=== PATIENT | male | born 1985 | race Caucasian/White ===

== ENCOUNTER 2020-07-21 08:47 | Observation (INO) | payer MEDICAID ==
[~2020-07-21] VITALS: Ht 188 cm; Wt 104.8 kg
--- NOTE | 2020-07-21 09:10 | NUR ---
WOKE TODAY WITH CP "IT FEELS LIKE ITS BRUISED BY MY HEART. I'M HAVING HOT AND COLD SWEATS." ecg obtained in triage vss NO muscle aches/cough
[2020-07-21] MEDS ORDERED: KETOROLAC 30 MG/1 ML ONE (09:17)
[2020-07-21] MEDS ORDERED: CYCLOBENZAPRINE 10 MG TABLET ONE (09:18)
--- NOTE | 2020-07-21 09:27 | NUR ---
Medicated per emar
[2020-07-21] MEDS ORDERED: CYCLOBENZAPRINE 10 MG TABLET PO ONE (09:30)
[2020-07-21] MEDS ORDERED: KETOROLAC 30 MG/1 ML IM ONE (09:30)
--- NOTE | 2020-07-21 09:48 | NUR ---
lab obtained-sent
[2020-07-21 09:57] LABS: BASOPHILS % (AUTO) 1 % (0-1); EOSINOPHILS % (AUTO) 2 % (1-7); LYMPHOCYTES % (AUTO) 38 % (22-44); MEAN CORPUSCULAR HGB CONC 34.8 g/dL (33.2-36.2); MEAN PLATELET VOLUME 10.4 fL (7.4-10.4); MONOCYTES % (AUTO) 7 % (2-9); NEUTROPHILS % (AUTO) 53 % (42-75); PLATELET COUNT 208 x10^3/uL (130-400); RED BLOOD COUNT 5.74 x10^6/uL (4.38-5.82); RED CELL DISTRIBUTION WIDTH 12.6 % (9.4-14.8)
[2020-07-21 10:09] LABS: ALBUMIN 4.1 g/dL (3.4-5.0); ANION GAP 9 mmol/L (5-15); CHLORIDE 102 mmol/L (98-107)
[2020-07-21 10:12] LABS: ALANINE AMINOTRANSFERASE 212 U/L (12-78); ALKALINE PHOSPHATASE 167 U/L (45-117); BILIRUBIN,TOTAL 0.7 mg/dL (0.2-1.0); CREATININE 0.94 mg/dL (0.7-1.3); TOTAL PROTEIN 8.5 g/dL (6.4-8.2); TROPONIN I < 0.015 ng/mL (0.000-0.045)
[2020-07-21 10:15] LABS: MD NO
--- NOTE | 2020-07-21 10:20 | NUR ---
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
[2020-07-21] MEDS ORDERED: ASPIRIN 81 MG TABLET CHEW PO STA (10:26)
[2020-07-21] MEDS ORDERED: ASPIRIN 81 MG TABLET CHEW ONE (11:23)
[2020-07-21 12:50] VITALS: BP 163/122
[2020-07-21] MEDS ORDERED: BISACODYL 10 MG SUPP PR PRN (13:30)
[2020-07-21] MEDS ORDERED: ONDANSETRON 2MG/ML, 2ML IVPush PRN (13:30)
[2020-07-21] MEDS ORDERED: ENOXAPARIN 40 MG/0.4 ML SQ SCH (13:30)
[2020-07-21] MEDS ORDERED: POLYETHYLENE GLYCOL 17 GM PACKET PO PRN (13:30)
[2020-07-21] MEDS ORDERED: hydrALAzine 20 MG/ML, 1ML IVPush PRN (13:30)
[2020-07-21] MEDS ORDERED: MELATONIN 5 MG TABLET PO PRN (13:30)
[2020-07-21] MEDS ORDERED: LABETALOL 5MG/ML, 20ML IVPush PRN (13:30)
[2020-07-21] MEDS ORDERED: ACETAMINOPHEN 325 MG TABLET PO PRN (13:30)
[2020-07-21 13:35] VITALS: BP 141/92
[2020-07-21 15:57] LABS: TROPONIN I < 0.015 ng/mL (0.000-0.045)
[2020-07-21] MEDS: metFORMIN 500 MG TABLET PO SCH (17:06)
[2020-07-21 20:51] VITALS: BP 168/110
[2020-07-21] MEDS: LISINOPRIL 10 MG TABLET PO SCH (20:55)
[2020-07-21 21:38] LABS: TROPONIN I < 0.015 ng/mL (0.000-0.045)
[2020-07-21] MEDS: CLOTRIMAZOLE CRM 1%, 15GM TP SCH (21:56)
[2020-07-22 01:46] VITALS: BP 128/81
[2020-07-22 05:25] LABS: BASOPHILS % (AUTO) 1 % (0-1); EOSINOPHILS % (AUTO) 2 % (1-7); LYMPHOCYTES % (AUTO) 27 % (22-44); MEAN CORPUSCULAR HEMOGLOBIN 30.5 pg (27.5-34.5); MEAN PLATELET VOLUME 10.3 fL (7.4-10.4); MONOCYTES % (AUTO) 6 % (2-9); NEUTROPHILS % (AUTO) 64 % (42-75); PLATELET COUNT 202 x10^3/uL (130-400); RED BLOOD COUNT 5.25 x10^6/uL (4.38-5.82); RED CELL DISTRIBUTION WIDTH 12.9 % (9.4-14.8)
[2020-07-22 05:27] LABS: MD NO
[2020-07-22 05:38] LABS: ALBUMIN 3.1 g/dL (3.4-5.0); ANION GAP 8 mmol/L (5-15); CALCIUM 8.5 mg/dL (8.5-10.1); CHLORIDE 104 mmol/L (98-107)
[2020-07-22 05:51] LABS: ALANINE AMINOTRANSFERASE 187 U/L (12-78); ALKALINE PHOSPHATASE 142 U/L (45-117); BILIRUBIN,TOTAL 0.4 mg/dL (0.2-1.0); CHOL/HDL RATIO 9.3; CHOLESTEROL, TOTAL 241 mg/dL (140-239); HDL CHOL % 11 % (26-37); HDL CHOLESTEROL (DIRECT) 26 mg/dL (40-60); TOTAL PROTEIN 7.2 g/dL (6.4-8.2); TRIGLYCERIDES 928 mg/dL (50-200)
[2020-07-22 08:32] VITALS: BP 151/106
[2020-07-22] MEDS ORDERED: LISI-167 PO (08:46)
[2020-07-22] MEDS ORDERED: ATOR40TA78 PO (08:46)
[2020-07-22] MEDS ORDERED: METF500T PO (08:46)
[2020-07-22] MEDS: CLOTRIMAZOLE CRM 1%, 15GM TP SCH (09:00)
[2020-07-22] MEDS ORDERED: SENNA/DOCUSATE TABLET PO SCH (09:00)
[2020-07-22] MEDS: LISINOPRIL 10 MG TABLET PO SCH (09:27)
[2020-07-22] MEDS: metFORMIN 500 MG TABLET PO SCH (09:27)
[2020-07-22] MEDS ORDERED: CLOT15CR6 TP (14:05)
[2020-07-22] MEDS ORDERED: ATORVASTATIN 40 MG TABLET PO SCH (21:00)
== END 2020-07-22 09:55 | disposition home or self-care (01) ==
LOC: ED 10:17 → INTOOBSV 12:47 → EDIP 12:47 → 5SO 12:49 → DCLOUNGE 07-22 09:41
PROVIDERS: ADMIT Family Medicine; ATTEND Family Medicine
DX: R07.89 Other chest pain (principal); I10 Essential (primary) hypertension; E11.65 Type 2 diabetes mellitus with hyperglycemia; E78.5 Hyperlipidemia, unspecified; R74.01 Elevation of levels of liver transaminase levels; H93.92 Unspecified disorder of left ear; F10.20 Alcohol dependence, uncomplicated; F17.203 Nicotine dependence unspecified, with withdrawal; F17.213 Nicotine dependence, cigarettes, with withdrawal; E66.9 Obesity, unspecified; Z68.30 Body mass index [BMI] 30.0-30.9, adult; Z79.899 Other long term (current) drug therapy
CPT/HCPCS: 36415; 71046; 80053; 80061; 83036; 84443; 84484; 85025; 85379; 93005; 96372; 99285; G0378; J1650; J1885